=== PATIENT | female | born 1980 | race Caucasian/White ===

== ENCOUNTER 2023-03-31 22:14 | Emergency (ER) | payer MEDICAID, SELFPAY ==
[2023-03-31 22:15] VITALS: BP 145/92; PULSE 89; RESP 16; TEMP 36.8; O2SAT 99; BMI 30.2
--- NOTE | 2023-03-31 23:26 | EKG12_ITS ---
Test Reason : CP Blood Pressure : / mmHG Vent. Rate : 098 BPM Atrial Rate : 098 BPM P-R Int : 140 ms QRS Dur : 074 ms QT Int : 336 ms P-R-T Axes : 063 001 054 degrees QTc Int : 428 ms Normal sinus rhythm Normal ECG Confirmed by SAMUEL MILLER, LAMBERTO ([id number]), restaurant expeditor JEANETTE POWELL ([id number]) on 04/05/2023 8:07:14 AM Referred By: RANDALL Confirmed By:LAWANDA BAKER MD
--- NOTE | 2023-03-31 23:26 | RAD_ITS ---
EXAM: XR CHEST, 2 VIEWS CLINICAL INDICATION: dyspnea TECHNIQUE: Frontal and lateral views of the chest. COMPARISON: No relevant prior studies available. FINDINGS: LUNGS AND PLEURAL SPACES: No acute airspace disease. Multiple benign calcified granulomas. No pneumothorax. No effusion. HEART: Unremarkable. Cardiac silhouette not enlarged. MEDIASTINUM: Central airways and mediastinal contour are unremarkable. BONES/JOINTS: Unremarkable. SOFT TISSUES: Unremarkable. RAD/Chest PA and Lateral IMPRESSION: No acute findings in the chest. Electronically Signed: Sina Mora MD at 0:08 EDT ,
--- NOTE | 2023-03-31 23:26 | CT_ITS ---
EXAM: CT ABDOMEN AND PELVIS WITH INTRAVENOUS CONTRAST CLINICAL INDICATION: upper abd pain, RUQ pain TECHNIQUE: Helically acquired images were obtained of the abdomen and pelvis with intravenous contrast. This CT exam was performed using one or more of the following dose reduction techniques: automated exposure control, adjustment of the mA and/or kV according to patient size, and/or use of iterative reconstruction technique. CONTRAST: IV 100mL Isovue-300 RADIATION DOSE: CTDIvol = 15.24 mGy, DLP = 854.25 mGy-cm COMPARISON: No relevant prior studies available. FINDINGS: LOWER THORAX: Unremarkable. Lung bases are clear. No cardiomegaly. No significant pericardial effusion. ABDOMEN: LIVER: Unremarkable. Homogeneous. No focal mass. GALLBLADDER AND BILE DUCTS: Unremarkable. No calcified gallstones. No gallbladder distention or wall edema. No intra- or extrahepatic biliary ductal dilation. PANCREAS: Unremarkable. No focal cystic or solid mass. No inflammation around the pancreas. SPLEEN: Unremarkable. Normal size without focal cystic or solid mass. ADRENALS: Unremarkable. No nodules. KIDNEYS AND URETERS: Unremarkable. Normal renal size and position. No urinary stone or renal obstruction. STOMACH AND BOWEL: Unremarkable. No stomach or bowel distention. No focal inflammatory change. PELVIS: APPENDIX: History of appendectomy. BLADDER: Unremarkable. REPRODUCTIVE: Unremarkable as visualized. No mass. ABDOMEN and PELVIS: INTRAPERITONEAL SPACE: Unremarkable. No ascites or other fluid collection. No free air. BONES/JOINTS: Unremarkable. No suspicious lytic or blastic abnormality. SOFT TISSUES: Unremarkable. No discrete abdominal or pelvic wall hernia. VASCULATURE: Unremarkable. Abdominal aorta is non-dilated. LYMPH NODES: Unremarkable. No enlarged lymph nodes. CT/Abdomen/Pelvis W IV Cont ONLY IMPRESSION: No acute abnormalities identified in the abdomen/pelvis. Electronically Signed: Sina Mora MD at 0:33 EDT ,
[2023-03-31] MEDS: 0.9% Normal Saline 1,000 ML 1000 ML IV (23:37)
[2023-03-31 23:40] LABS: Absolute Lymphocyte Count 3.27 X10^3/uL (0.83-4.51); Absolute Neutrophil Count 9.9 X10^3/uL (2.0-7.7); Basophil# 0.08 X10^3/uL; Basophil% 0.5 % (0-1); Eosinophil# 0.19 X10^3/uL; Eosinophils% 1.3 % (0-5); Hematocrit 38.5 % (37-47); Hemoglobin 12.9 g/dL (12.0-15.0); Lymphocyte # 3.27 X10^3/ul (0.83-4.51); Mean Corp Hgb Conc 33.5 g/dL (32-36); Mean Corpuscular Hgb 31.5 pg (27.0-32.0); Mean Corpuscular Volume 93.9 fL (81-99); Monocyte# 1.36 X10^3/uL; Monocyte% 9.1 % (0-10); NRBC Flagged by Analyzer 0 % (0-5); Neutrophil # 9.93 X10^3/uL (2.7-7.7); Neutrophil % 66.7 % (47-70); Platelet Count 474 K/mm3 (150-450); RBC Distribution Width CV 14.1 % (11.6-14.6); RBC Distribution Width SD 48.8 fl (35.1-43.9); White Blood Count 14.9 K/mm3 (4.4-11.0)
--- NOTE | 2023-03-31 23:55 | EDS_ITS ---
HPI History of Present Illness Chief Complaint: General Illness Informant: patient Narrative Narrative: Patient is a 42-year-old female with history of GERD presenting for epigastric and right upper quadrant abdominal pain. Started around 2 PM today. Patient states she is also just been feeling blah and weak. She states her chest is heavy and she has had a cough for couple weeks. She denies any nausea or vomiting. She states her bowel movements have been normal but she has been a little more gassy today. Does have a history of prior appendectomy. She notes that 5 days ago she had a near syncopal episode where she was very out of it and everything felt far away. She notes she had taken THC edible at that time. She is not had any symptoms like that since she does not usually use Gummies. Patient states that she ate dinner tonight with no significant change but had not really eaten before that today. She does not normally eat until the evening time. PFSH PFS Medical History (Updated 04/01/23 @ 02:[address] Nina Kaye, DO) Depression Home Medications dextroamphetamine-amphetamine ER 30 mg 24hr capsule,extend release (Adderall XR) 30 mg PO DAILY 03/31/23 [History Last Taken Unknown] multivitamin (One Daily Multivitamin tablet) 1 tab PO DAILY 03/31/23 [History Last Taken Unknown] omeprazole 20 mg capsule,delayed release 20 mg PO DAILY 03/31/23 [History Last Taken Unknown] Allergy/AdvReac Type Severity Reaction Status Date / Time amoxicillin Allergy Mild Itching Verified 03/31/23 22:19 Family History (Updated 03/31/23 @ 22:37 by Pat Barton) Father Lung cancer Mother Depression Surgical History (Updated 03/31/23 @ 22:37 by Pat Barton) Hx of appendectomy Social History (Updated 03/31/23 @ 22:37 by Pat Barton) household members: significant other and children number of children: 3 Smoking Status: Current every day smoker tobacco type: cigarettes EXAM Physical Exam Const Vital Signs: 03/31/23 22:15 03/31/23 22:36 04/01/23 02:14 Temperature 98.3 F Temperature Source Temporal Pulse Rate 89 Respiratory Rate 16 18 Respiratory Effort Normal Blood Pressure 145/92 H Blood Pressure Mean 109 Pulse Ox 99 Oxygen Delivery Method Room Air 04/01/23 02:20 Temperature Temperature Source Pulse Rate 75 Respiratory Rate 18 Respiratory Effort Blood Pressure 125/74 H Blood Pressure Mean 91 Pulse Ox 98 Oxygen Delivery Method Room Air MDM MDM MDM Narrative Medical decision making narrative: Patient is evaluated for chest heaviness, generalized malaise and some vague right upper quadrant abdominal pain has been occurring all day today. The past few weeks she has had a cough has been intermittently productive. She had what sounds like a near syncopal episode 5 days ago but this does not seem to be correlated with taking a THC gummy. Patient does not have true chest pain but more of a heaviness. Has been a little gassy but does not think that is overly abnormal for her. No other GI symptoms. Symptoms seem to be worse with movement. Workup is remarkable for a leukocytosis of 14.9. This is of uncertain clinical significance and she does not have any fever and does not report fevers there is no obvious source of infection. Given her tenderness in her right upper quadrant I am concerned for possible cholecystitis however her symptoms are not really consistent with acute cholecystitis. Ultrasound is not available at this time so decided to initially perform a CT of the abdomen and pelvis. This is negative for any acute process. She still having more tenderness than I would expect in her right upper quadrant so decision was made to obtain a right upper quadrant ultrasound. This also is negative for acute cholecystitis. Lab work is otherwise normal with a normal lipase, normal liver panel and no renal insufficiency/electrolyte abnormality. 2 view chest x-ray interpreted by myself as well as radiology does not show any acute infiltrate indicative of pneumonia. Urinalysis is not consistent with infection. Patient is given Toradol in the ER with no significant improvement of her pain. Has been coughing so is possib le she could have pulled a muscle in her abdominal wall. Patient is counseled that the exact cause of her pain is not clear as well as the cause of her leukocytosis. She is agreeable to going home however and is given close return precautions. She has an appointment in 5 days to see new PCP [facility]. She is encouraged to keep it. In the meantime is counseled to alternate ibuprofen and Tylenol. I do not want to give antibiotics as I do not have a thing and particularly treating. She denies any recent steroid use that could cause leukocytosis. Patient and significant other verbalized agreement understand this plan. Patient discharged home in stable condition. Lab Data Attestation: I reviewed the patient's lab results. Labs: Laboratory Results - last 24 hr 03/31/23 04/01/23 22:42 00:28 WBC 14.9 H RBC 4.10 L Hgb 12.9 Hct 38.5 MCV 93.9 MCH 31.5 MCHC 33.5 RDW Std Deviation 48.8 H RDW Coeff of Michaelle 14.1 Plt Count 474 H MPV 10.0 Immature Gran % (Auto) 0.400 Neut % (Auto) 66.7 Lymph % (Auto) 22.0 [place] % (Auto) 9.1 Eos % (Auto) 1.3 Baso % (Auto) 0.5 Absolute Neuts (auto) 9.9 H Absolute Lymphs (auto) 3.27 Nucleated RBC % 0 Sodium 140 Potassium 3.3 L Chloride 106 Carbon Dioxide 27.0 Anion Gap 7 BUN 15 Creatinine 0.87 Estim Creat Clear Calc 69.68 Est GFR (MDRD) Af Amer 92 Est GFR (MDRD) Non-Af 76 BUN/Creatinine Ratio 17.2 Glucose 89 Calcium 8.7 Total Bilirubin 0.20 AST 9 L ALT 16 Alkaline Phosphatase 58 Troponin I High Sens 4 Total Protein 7.4 Albumin 3.2 Globulin 4.2 Albumin/Globulin Ratio 0.8 L Lipase 31 Urine Color Yellow Urine Clarity Clear Urine pH 6.5 Ur Specific [place] 1.015 Urine Protein 15 H Urine Glucose (UA) Normal Urine Ketones Negative Urine Occult Blood 25 H Urine Nitrite Negative Urine Bilirubin Negative Urine Urobilinogen Normal Ur Leukocyte Esterase 25 H Urine RBC 0 SEEN Urine WBC 0-5 SEEN Ur Squamous Epith Cells 0-5 SEEN Urine Bacteria 0 SEEN Urine Mucus 0 SEEN Radiography Chest X-Ray - ED: 2 View, Read by ED Physician, Read by Radiologist and Normal Diagnostic Testing: Clinical Impression(s) from Imaging Studies Abdomen/Pelvis CT 03/31/23 23:26 IMPRESSION: No acute abnormalities identified in the abdomen/pelvis. Electronically Signed: Sina Mora MD at 0:33 EDT , Chest X-Ray 03/31/23 23:26 IMPRESSION: No acute findings in the chest. Electronically Signed: Sina Mora MD at 0:08 EDT Reading Location ID and State: [facility] / [place] Tel , Service support , Gallbladder Ultrasound 04/01/23 01:04 IMPRESSION: 1. No acute findings in the right upper quadrant. 2. No gallstones. 3. Fatty infiltration of the liver. Electronically Signed: Sina Mora MD at 2:35 EDT Reading Location ID and State: [facility] / [place] Tel , Service support , Rhythm Strip Rhythm Strip: Sinus Rhythm Rate: 98 Ectopy: None EKG Initial EKG: Attestation: I personally reviewed and interpreted this EKG as follows: Interpretation: Sinus Rhythm Comments: Normal sinus rhythm rate of 98 bpm Normal axis Normal intervals Normal ST segments Differential Diagnosis Chest pain/SOB: pulmonary embolism Reason(s) PE less likely: Positive for PERC negative, not tachycardic and not hypoxic, ACS ACS: Positive for no evidence of ACS based on cardiac biomarkers, EKG without ischemia and history not suggestive of ischemia pain and pneumonia Reason(s) pneumonia less likely: Positive for no infiltrate on CXR and no noted fever Abdominal Pain: Appendicitis Reason(s) appendicitis less likely: Positive for clinical exam does not supportclinical exam does not support and other (Prior appendectomy), Cholecystitis Reason(s) Cholecystitis less likely: NL Gall Bladder on imagng studies, Pancreatitis Reason(s) Pancreatitis less likely: NL lab values and other (Normal pancreas on CT), Bowel obstruction Reason(s) bowel obstruction less likely: bowel sounds present on exam and no evidence of bowel obstruction on imaging studies and UTI Reason(s) UTI less likely: clinical exam does not support, no evidence of infection on urinalysis and no symptoms of acute infection Discharge Plan Triage Chief Complaint: General Illness ED Provider: Nina Kaye Dx/Rx/DC Orders Clinical Impression: Abdominal pain, RUQ, Chest heaviness, Leukocytosis Instructions: ED Chest Pain, Uncertain Cause, ED Pain, Acute, Uncertain Cause Prescriptions: No Action dextroamphetamine-amphetamine [Adderall XR] 30 mg capsule,extended release 24hr 30 mg PO DAILY multivitamin [One Daily Multivitamin] Tablet 1 tab PO DAILY omeprazole 20 mg capsule,delayed release(DR/EC) 20 mg PO DAILY Primary Care Provider: Care Physician,No Primary Referrals: [facility] [Non-Staff] - Keep Les appointment Care Physician,No Primary [Primary Care Provider] - Activity Restrictions/Additional Instructions: Workup today showed an elevated white blood cell count. The exact reason for this is not clear. There is no signs of pneumonia, acute cholecystitis (gallbladder attack or other acute abnormalities on your workup. Please drink lots of fluids, alternate ibuprofen and Tylenol as needed for discomfort. Do no t hesitate to return the emergency room if you have a progression of your symptoms including but not limited to worsening pain, vomiting or high fever. Disposition Disposition: Home, Self Care Discharge Date/Time: 04/01/23 03:02
[2023-04-01] LABS: ALB/GLOB Ratio 0.8 RATIO (0.9-2.4); AST(SGOT) 9 U/L (15-37); Alanine Aminotransfer ALT/SGPT 16 U/L (13-56); Albumin, Serum 3.2 g/dL (3.2-5.0); Alkaline Phosphatase 58 U/L (45-117); Anion Gap 7 (5-15); BUN 15 mg/dL (7-18); BUN/Creat Ratio 17.2 RATIO (10-20); Calcium,Total 8.7 mg/dL (8.5-10.1); Chloride 106 mmol/L (98-107); Creatinine, Serum 0.87 mg/dL (0.55-1.02); EST Glomerular Filtration Rate 76 mL/min (>60); Est Glom Filt Rate - Afr Amer 92 mL/min (>60); Estimated Creatinine Clearance 69.68 ml/min; Globulin 4.2 g/dL (2.2-4.2); Glucose 89 mg/dL (74-106); Lipase 31 U/L (13-75); Potassium 3.3 mmol/L (3.5-5.1); Protein, Total 7.4 g/dL (6.4-8.2); Sodium Level 140 mmol/L (136-145); Troponin-I HS 4 pg/mL (3.0-54.0)
[2023-04-01 00:33] LABS: Bacteria 0 SEEN /hpf (None Seen); Mucous, Urine 0 SEEN /hpf (<or=2+); Red Blood Cells-Urine 0 SEEN /hpf (0-5)
[2023-04-01 00:34] LABS: Color, Urine Yellow (Yellow); Glucose, Dipstick Normal (Normal); Ketone-Dipstick Negative (Negative); Leukocyte Esterase-Dipstick 25 /ul (Negative); Nitrite-Dipstick Negative (Negative); Occult Blood-Urine 25 /ul (Negative); Protein-Dipstick 15 mg/dl (Negative); Specific Gravity, Urine 1.015 (1.002-1.030); Urine Bilirubin Dipstick Negative (Negative); Urine Clarity Clear (Clear); Urine Urobilinogen Normal (Normal); Urine pH 6.5 (5.0 - 8.0)
[2023-04-01 00:44] LABS: Squamous Epithelial Cells - UA 0-5 SEEN /hpf (5-10); White Blood Cells 0-5 SEEN /hpf (0-5)
--- NOTE | 2023-04-01 01:04 | US_ITS ---
EXAM: US ABDOMEN LIMITED, RIGHT UPPER QUADRANT CLINICAL INDICATION: RUQ pain, leukocytosis TECHNIQUE: Real-time ultrasound of the right upper quadrant with image documentation. COMPARISON: CT abdomen pelvis 03/31/2023. FINDINGS: LIVER: Mild increased echogenicity of the liver parenchyma. No intrahepatic biliary ductal dilation. GALLBLADDER: The gallbladder is partly contracted. No shadowing gallstone. No pericholecystic fluid. Negative sonographic Villarreal''s sign. COMMON BILE DUCT: 5.2 mm. The proximal common bile duct is within normal limits for the patient''s age. PANCREAS: Unremarkable as visualized. No focal abnormality is demonstrated in the pancreas. No pancreatic ductal dilatation. RIGHT KIDNEY: Unremarkable. There is no hydronephrosis. No shadowing calculus. No focal lesion or perinephric collection is demonstrated. US/Gallbladder IMPRESSION: 1. No acute findings in the right upper quadrant. 2. No gallstones. 3. Fatty infiltration of the liver. Electronically Signed: Sina Mora MD at 2:35 EDT ,
[2023-04-01] MEDS: Ketorolac 15 MG/ML Vial IV (01:43)
[2023-04-01 02:14] VITALS: RESP 18
[2023-04-01 02:20] VITALS: BP 125/74; PULSE 75; RESP 18; O2SAT 98
[2023-04-01 03:01] VITALS: BP 122/68; PULSE 71; RESP 16
== END 2023-04-01 03:02 | disposition home or self-care (01) ==
PROVIDERS: Emergency Provider Emergency Medicine; Visit Provider Emergency Medicine
DX: R10.11 Right upper quadrant pain (principal); R07.89 Other chest pain; R10.13 Epigastric pain; F17.210 Nicotine dependence, cigarettes, uncomplicated; D72.829 Elevated white blood cell count, unspecified; K21.9 Gastro-esophageal reflux disease without esophagitis; Z90.49 Acquired absence of other specified parts of digestive tract
CPT/HCPCS: 71046; 74177; 76705; 80053; 81001; 83690; 84484; 85025; 93005; 96361; 96374; 99283; J7030; Q9967; A4216

== ENCOUNTER → 2023-05-03 | Outpatient (CLI) | payer MEDICAID, SELFPAY ==
[2023-05-03 15:27] LABS: Free T3 2.8 pg/mL (2.18-3.98); T4 Free Direct 0.99 ng/dL (0.76-1.46); Thyroid Stim Hormone (TSH) 1.36 uIU/mL (0.358-3.74)
[2023-05-03 16:43] LABS: Amphetamine Urine VISTA POSITIVE (<1000 ng/mL); Barbiturate Urine VISTA NEGATIVE (< 200 ng/mL); Benzodiazepine Urine VISTA NEGATIVE (< 200 ng/mL); Cocaine Urine VISTA NEGATIVE (< 300 ng/mL); Ecstacy Urine VISTA NEGATIVE (< 500 ng/mL); Methadone Urine VISTA NEGATIVE (< 300 ng/mL); PCP Urine VISTA NEGATIVE (< 25 ng/mL); THC Urine VISTA NEGATIVE (< 50 ng/mL); Vista UDS pH Range 6
== END | disposition home or self-care (01) ==
LOC: LAB 14:02
PROVIDERS: Referring Provider Nurse Practitioner Psychiatric/Mental Health; Visit Provider Nurse Practitioner Psychiatric/Mental Health
DX: F19.10 Other psychoactive substance abuse, uncomplicated (principal); R53.83 Other fatigue; Z79.899 Other long term (current) drug therapy
CPT/HCPCS: 36415; 80307; 84439; 84443; 84481

== ENCOUNTER 2023-06-28 07:16 | Day surgery (SDC) | payer MEDICAID, SELFPAY ==
--- NOTE | 2023-06-28 | IMM_PTH ---
PATIENT: RANJIT KHAN LOC: EN U#:[id number] AGE/SX: 43/F ROOM: RE06/28/[address]: Dr. Maribel Miller MD : 1980 BED: DIS: 06/28/2023 SPEC #: [id number] RECD: 06/28/23 11:52 STATUS: RIGOBERTO [place] #: [id number] DMITRIY: 06/28/23 00:[address]: Maribel Miller DEPT: IMMUNOHISTOCHEMISTRY RECD BY: Wyatt Olvera ENTERED: 06/28/23 11:52 SP TYPE: IMMUNO PRIMO DR: [facility] Tissues: A - Gastric mucous membrane b - Gastric mucous membrane Procedures: H Pylori (initial) KI-67 (add) P53 (add) PHYSICIAN & INSTITUTION [place] [id number] SPECIMEN INFORMATION: Tissue Source: Antrum Clinical Info: GERD, GE junction Specimen Number: [id number] A and B CPT code: 97772, 15578 x2 METHODOLOGY: Deparaffinized sections of prefer/formalin-fixed tissue or PAP/DQ stained slides are incubated with monoclonal/polyclonal antibodies/oligonucleotide probes. Localization is made via biotin free immunoperoxidase method. Appropriate controls are performed and reacted as expected. Results on target cell population are indicated in the following table: RESULTS: ANTIBODY / CLONE RESULT BLOCK A H Pylori (polyclonal) negative BLOCK B P53 (DO-7) negative (null pattern) Ki-67 (30-9) positive, low These tests were developed and their performance characteristics determined by [facility]. They may not have been cleared or approved by the U.S. Food and Drug Administration. The FDA has determined that such clearance or approval is not necessary. The above immunohistochemical/dualISH markers are ordered and reviewed by the Pathologist. INTERPRETATION: A. Antrum, biopsy: Negative for Helicobacter pylori organisms. B. GE junction, biopsy: Negative for dysplasia. SJ:gerber 06/30/2023
[2023-06-28 07:40] VITALS: BP 132/78; PULSE 93; RESP 16; TEMP 37.1; O2SAT 99; BMI 30.4
[2023-06-28 07:42] LABS: Internal QC Validated? YES +Cl - CLEAR BKGD; Pregnancy, Urine Negative Negative; Record Kit Lot#,Urine Preg HCG0000667200
[2023-06-28] MEDS: Lactated Ringers 1,000 ML 15 ML IV (07:42)
--- NOTE | 2023-06-28 08:01 | HP.PCM_ITS ---
History and Physical Date of Admission: 06/28/23 Date of Service: 06/03/23 MR#: [id number] Acct: [id number] Name: RANJIT KHAN Rep #: [id number] : 1980 Provider: Dr. Maribel Miller MD Age/Sex: 42/F Location: [facility] Status: Signed Intake Vital Signs 03/31/2322:15 06/03/2313:08 Height 5 ft 3 in 5 ft 3 in Weight: 172 lb BMI 30.4 BP 125/87 H Blood Pressure Location Rt brachial Position Sitting Respiration 17 Pulse 88 Pulse Source Monitor Pulse Oximetry (%) 99 Oxygen Delivery Method room air Intake Visit Reasons: Gerd Chief Complaint: gerd Is patient in pain?: No Allergies amoxicillin Allergy (Mild, Verified 06/03/23 13:12) Itching Medications dextroamphetamine-amphetamine ER 30 mg 24hr capsule,extend release (Adderall XR) 30 mg PO DAILY 03/31/23 [History Confirmed 06/03/23] multivitamin (One Daily Multivitamin tablet) 1 tab PO DAILY 03/31/23 [History Confirmed 06/03/23] pantoprazole 40 mg tablet,delayed release 40 mg PO DAILY 06/03/23 [History Confirmed 06/03/23] sucralfate 1 gram tablet 1 g PO QACHS #56 tabs 06/03/23 [Rx Confirmed 06/03/23] venlafaxine 37.5 mg capsule,extended release 24 hr 37.5 mg PO DAILY 06/03/23 [History Confirmed 06/03/23] PFSH Medical History (Updated 06/03/23 @ 13:07 by Soledad Pereyra) Depression Surgical History Hx of appendectomy Family History (Updated 06/03/23 @ 13:08 by Soledad Pereyra) Father Lung cancerMother DepressionBrother Thyroid disorder Social History (Updated 06/03/23 @ 13:08 by Soledad Pereyra) household members: significant other and children number of children: 3 Smoking Status: Current every day smoker tobacco type: cigarettes alcohol intake: never substance use type: does not use HPI HPI HPI: 2-year-old female presents due to reflux. Patient states she has had issues since she was a while ago. Patient was initially on some likely PPI and then lost insurance was on Pepcid and more recently patient was able to get her insurance back she was previously on Pepcid at about every other day which controlled her symptoms fairly well. Patient is got her insurance back but 2 months ago did see her PCP and got Protonix 40 mg p.o. daily. Patient's never had previous EGD. Patient states she is will still have symptoms on the medication and occasionally will wake up middle night with burning up her esophagus. Patient still does drink coffee in the morning. Patient only eats 1 meal a day typically before bed as she usually does not have an appetite earlier in the day and patient states its been like that for years. Currently patient denies any abdominal pain or nausea. ROS General General: No weight change, appetite, fatigue, colon cancer, breast cancer or weakness HEENT HEENT: No difficulty swallowing, eye injury, eye surgery, swollen glands or hoarseness Endo Endocrine: No thyroid disease, diabetes mellitus, thyroid cancer, Hair loss, heat intolerance or cold intolerance Skin Skin: No rash or changing moles Musc Musculoskeletal: Yes back problems; No arthritis, rheumatoid arthritis, gout or joint pain Cardio Cardiovascular: No murmur, pacemaker, heart disease, atrial fibrillation, high blood pressure, heart attack, heart stent, palpitations, shortness of breat with exertion or chest pain Psych Psychiatric: Yes depression and anxiety; No hearing voices Resp Respiratory: No shortness of breath, No sleep apnea, No cough, No COPD, No asthma, No emphysema and No wheezing Gastro Gastrointestinal: Yes abdominal pain, No nausea or vomiting, No diarrhea, Yes constipation, No blood in stool, Yes acid reflux, Yes hemorrhoids, No ulcers, Yes gallbladder problem and No black,tarry stools David Hematologic: No blood thinners, No blood disorders, No bleeding, No anemia and No blood clots Neuro Neurologic: No system reviewed and no additional complaints, except as documented, No as per HPI, No abnormal gait, No abnormal hearing, No abnormal movements, No abnormal speech, No behavioral changes, No burning sensations, No confusion, No convulsions, No disequilibrium, No dizziness, No localized weakness, No frequent falls, No headache(s), No lack of coordination, No loss of vision, No memory loss, No numbness, No other visual disturbances, No radicular pain, No restless legs, No sensory deficit, No syncope, No tingling, No tremor(s), No weakness and No other Exam Const General: cooperative, healthy appearing, comfortable and no acute distress HENPR Head: normocephalic and atraumatic Neck Neck: supple Resp Effort & Inspection: normal respiratory effort Cardio Rate: regular rate GI Inspection: non-distended Palpation: soft and nontender Skin General: no rashes or lesions noted Neuro General: CN's II-XI intact bilaterally Extrem General: normal to inspection Psych Mental Status: mental status grossly normal Attitude: cooperative Assessment and Plan Assessment and Plan (1) GERD (gastroesophageal reflux disease): Status: Acute Medications: New sucralfate Take an hour before meals and at bedtime 1 g PO QACHS 56 tabs 0RF Plan Also prescribe patient Carafate x2 weeks see if that helps calm down her stomach. Rectal recommend patient staying on the Protonix as well. Discussed with patient if she would lose her insurance again in the future?using GoodRx is a cheaper way to get the prescription or [id number]-[id number] omeprazole as available. Discussed with patient importance of trying to avoid coffee/caffeine/spicy foods or acidic foods. I have discussed the above with the patient. I have offered the patient EGD for evaluation. I have explained the risks/benefits of the procedure and described the procedure. I have discussed the risks with the patient, including but not limited to: infection, bleeding, perforation of the GI tract requiring emergency surgery, inability to complete the procedure, injury to any internal organs, complications of anesthesia, etc. - the patient understands and agrees to proceed. I have answered all the patient's questions to the patient's satisfaction and the patient has no further questions. Maribel Miller M.D. Pager: [phone] [facility] [address] [place] [address], [address] [place] [address] Office: [phone] Coding Level of Care Code Off vis,new,level 3 Diagnoses GERD (gastroesophageal reflux disease) K21.9 06/03/23 1428 <Electronically signed by Maribel Miller MD> Date Maribel Miller MD
[2023-06-28 08:25] VITALS: BP 125/76; BP 132/78; PULSE 94; RESP 18; TEMP 37; O2SAT 97
--- NOTE | 2023-06-28 08:25 | OP.CCLET_ITS ---
06/28/2023 [facility] Re : Upper GI endoscopy procedure for Celestino Montiel [facility] This procedure was performed on Wednesday, June 28, 2023. My impressions and recommendations are as follows: Impressions : - Z-line irregular. Biopsied. - Erythematous mucosa in the antrum. Biopsied. - Normal examined duodenum. Recommendations : - Await pathology results. - Discharge patient to home. - Resume previous diet. - Continue present medications. My findings are described in the full procedure note, which is enclosed. If I can be of further assistance, please feel free to contact me at Doctor phone number(s): , Work: . Sincerely, MD Maribel Heath MD 06/28/2023 8:25:01 AM This report has been signed electronically.
--- NOTE | 2023-06-28 08:25 | OP.EGD_ITS ---
Patient Name: Celestino Palacios Procedure Date: 06/28/2023 8:02 AM Date of : 1980 Age: 43 Procedure: Upper GI endoscopy Indications: Heartburn Providers: Maribel Miller MD Referring MD: Alla Carrasco [facility] Medicines: Monitored Anesthesia Care Patient Profile: This is a 43 year old female. Complications: No immediate complications. Procedure: Pre-Anesthesia Assessment: - Prior to the procedure, a History and Physical was performed, and patient medications and allergies were reviewed. The patient's tolerance of previous anesthesia was also reviewed. The risks and benefits of the procedure and the sedation options and risks were discussed with the patient. All questions were answered, and informed consent was obtained. Prior Anticoagulants: The patient has taken no anticoagulant or antiplatelet agents. ASA Grade Assessment: Per anesthesia. After reviewing the risks and benefits, the patient was deemed in satisfactory condition to undergo the procedure. After obtaining informed consent, the endoscope was passed under direct vision. Throughout the procedure, the patient's blood pressure, pulse, and oxygen saturations were monitored continuously. The Endoscope was introduced through the mouth, and advanced to the second part of duodenum. The upper GI endoscopy was accomplished without difficulty. The patient tolerated the procedure well. Scope In: 8:14:40 AM Scope Out: 8:20:01 AM Total Procedure Duration Time 0 hours 5 minutes 21 seconds Findings: The Z-line was irregular. Biopsies were taken with a cold forceps for histology. Mildly erythematous mucosa without bleeding was found in the gastric antrum. Biopsies were taken with a cold forceps for histology. Biopsies were taken with a cold forceps for Helicobacter pylori cultures. The cardia and gastric fundus were normal on retroflexion. The examined duodenum was normal. Impression: - Z-line irregular. Biopsied. - Erythematous mucosa in the antrum. Biopsied. - Normal examined duodenum. Recommendation: - Await pathology results. - Discharge patient to home. - Resume previous diet. - Continue present medications. Procedure Code(s): --- Professional --- 60031, Esophagogastroduodenoscopy, flexible, transoral; with biopsy, single or multiple Diagnosis Code(s): --- Professional --- K22.89, Other specified disease of esophagus K31.89, Other diseases of stomach and duodenum R12, Heartburn CPT copyright 2021 [employer]. All rights reserved. The codes documented in this report are preliminary and upon tarring machine operator review may be revised to meet current compliance requirements. MD Maribel Heath MD 06/28/2023 8:25:01 AM This report has been signed electronically. Number of Addenda: 0 Note Initiated On: 06/28/2023 8:02 AM
[2023-06-28 08:30] VITALS: BP 122/78; BP 132/78; PULSE 94; RESP 16; O2SAT 98
--- NOTE | 2023-06-28 08:30 | EGD_PTH ---
PATIENT: RANJIT KHAN LOC: EN U#:[id number] AGE/SX: 43/F ROOM: RE06/28/[address]: Dr. Maribel Miller MD : 1980 BED: DIS: 06/28/2023 SPEC #: [id number] RECD: 06/28/23 10:12 STATUS: RIGOBERTO BEATRIS #: [id number] DMITRIY: 06/28/23 08:[address]: Maribel Miller DEPT: SURGICAL PATHOLOGY RECD BY: Michelle Hamlin ENTERED: 06/28/23 11:03 SP TYPE: EGD BIOPSY OT DR: [facility] Tissues: A - Gastric mucous membrane B - Esophageal mucous membrane Procedures: Surgery Specimen Level IV HEADER OPERATION: EGD with biopsy PRE-OP DIAGNOSIS: GERD TISSUE SUBMITTED: A. Antrum, B. GE junction MICROSCOPIC DIAGNOSIS A. Antrum, biopsy: Mild gastritis. See microscopic description and comment. B. GE junction, biopsy: Fragments of gastroesophageal mucosa with intestinal metaplasia (goblet cell metaplasia), consistent with Ritter's esophagus. Chronic inflammation. Negative for dysplasia. See comment. SJ: 06/29/2023 COMMENT A. The results of immunohistochemistry for Helicobacter pylori will be reported separately ([id number]). B. Alcian blue/PAS stain with matched control is used in the evaluation of the specimen. Immunohistochemistry ([id number]) for P53 and Ki-67 will be performed and results will be reported separately. MICROSCOPIC DESCRIPTION Slides are reviewed. The specimen shows fragments of gastric mucosa with chronic inflammatory cell infiltrates in the lamina propria consisting of lymphocytes and plasma cells, consistent with mild chronic gastritis. GROSS DESCRIPTION A. Received is one container labeled with the patient name and designated antrum. The specimen consists of one irregular fragment of light mcnamara soft tissue that measures 0.6 x 0.3 x 0.1 cm. The specimen is totally submitted in one cassette. B. Received is one container labeled with the patient name and designated GE junction. The specimen consists of two irregular fragments of light mcnamara soft tissue that in aggregate measure 0.6 x 0.3 x 0.1 cm. The specimen is totally submitted in one cassette. / ERICA:gerber 06/28/23 TC:3 CPT: 95494 x2, 86429
[2023-06-28 08:35] VITALS: BP 126/88; BP 132/78; PULSE 97; RESP 16; O2SAT 97
[2023-06-28 08:40] VITALS: BP 124/76; BP 132/78; PULSE 81; RESP 16; TEMP 37.4; O2SAT 97
[2023-06-28 08:56] VITALS: BP 132/78
== END 2023-06-28 09:03 | disposition home or self-care (01) ==
LOC: EN 07:16 → AC 07:18
PROVIDERS: Anesthesiology; Visit Provider Surgery
PROC: 0DJ08ZZ Inspection of Upper Intestinal Tract, Via Natural or Artificial Opening Endoscopic (ICD-10-PCS; CPT 43235; principal; 2023-06-28 08:25)
DX: K29.70 Gastritis, unspecified, without bleeding (principal); K21.00 Gastro-esophageal reflux disease with esophagitis, without bleeding; F17.210 Nicotine dependence, cigarettes, uncomplicated; F32.A Depression, unspecified; F41.9 Anxiety disorder, unspecified; K22.70 Barrett's esophagus without dysplasia; Z79.899 Other long term (current) drug therapy; Z90.49 Acquired absence of other specified parts of digestive tract
CPT/HCPCS: 43239; 81025; 88305; 88341; 88342; J7120; J2405

== ENCOUNTER 2025-05-30 22:05 | Emergency (ER) | payer SELFPAY ==
[2025-05-30 22:07] VITALS: BP 169/92; PULSE 98; RESP 18; TEMP 36.1; O2SAT 100
--- NOTE | 2025-05-30 22:10 | RAD_ITS ---
PROCEDURE: RIGHT SHOULDER MIN 2 VIEWS 05/30/2025 REASON FOR EXAM: PAIN TECHNIQUE: Procedure Code: RADSH Modality: DX Procedure: SHOULDER MIN 2 VIEWS Laterality: Right COMPARISON: None. FINDINGS: No acute fracture or dislocation. Alignment is anatomic. Preserved joint spaces. Large amount of amorphous calcification overlying the superolateral right humeral head reflecting rotator cuff calcific tendinosis. Innumerable scattered subcentimeter pulmonary calcified granulomas noted. RAD/Shoulder min 2 Views IMPRESSION: No significant osseous abnormality. Prominent rotator cuff calcific tendinosis /tendinitis. Reading Location: [id number]
--- NOTE | 2025-05-30 22:40 | EDS_ITS ---
HPI History of Present Illness Chief Complaint: Upper Extremity Injury Narrative Narrative: 44-year-old female who denies significant past medical history, [id number], presents with pain in her right shoulder that she has had for at least a week. She relates history that she did not fall on it but she was helping a friend pull a kayak out of the water. This was approximately a week ago. The following day she developed right shoulder pain. It improved after about 3 days, but started again 2 days ago. She now has increasing pain that is worse with movement in her right shoulder. It is diffuse. She denies any chest pain, no abdominal pain. She has been taking ibuprofen without relief of her symptoms. [facility] Medical History Wears glasses Restless legs Gastric reflux Shortness of breath on exertion Smoker Depression Home Medications ?Medication ?Instructions ?Recorded ?Last Taken ?Type dextroamphetamine-amphetamine ER 30 mg PO DAILY 06/28/23 History 30 mg 24hr capsule,extend release (Adderall XR) multivitamin (One Daily 1 tab PO DAILY 03/31/23 Unkn own History Multivitamin tablet) pantoprazole 40 mg tablet,delayed 40 mg PO DAILY 06/03 Unknown History release sucralfate 1 gram tablet 1 g PO QACHS #56 tabs Unknown Rx venlafaxine 37.5 mg 75 mg PO DAILY 06/03/2302/12 History capsule,extended release 24 hr hydrocodone-acetaminophen 5-325mg 1 tab PO Q6H PRN thea n 3 days #10 05/30/25 Unknown Rx 5mg-325mg tabs Allergy/AdvReac Type Severity Reaction Status Date / Time amoxicillin Allergy Mild Itching Verified 05/30/25 22:06 Family History Father Lung cancer Mother Depression Brother Thyroid disorder Surgical History Hx of appendectomy Social History household members: significant other and children number of children: 3 Smoking Status: Current every day smoker tobacco type: cigarettes alcohol intake: never substance use type: does not use ROS ROS ED ROS Narrative Review of systems positive for right shoulder pain worse with movement. Ibuprofen without relief. No fevers or chills, no abdominal pain. EXAM Physical Exam Narrative Exam Narrative: Afebrile. Vital signs noted. Nontoxic-appearing. Cardiovascular examination feels regular rate and rhythm. Lungs are clear to auscultation bilaterally. Abdomen is soft and nontender without guarding or rebound. No right upper quadrant abdominal pain. Inspection of the shoulder reveals limited range of motion secondary to pain. She has pain with external rotation of the right forearm, and also pain with abduction. There is diffuse tenderness to palpation but no clinical dislocation. She has a palpable radial pulse distally. No crepitance of skin, no collarbone tenderness/clavicular tenderness. Const Vital Signs: 05/30/25 22:07 Temperature 96.9 F L Temperature Source Temporal Pulse Rate 98 Respiratory Rate 18 Blood Pressure 169/92 H Blood Pressure Mean 117 Pulse Ox 100 Oxygen Delivery Method Room Air MDM MDM MDM Narrative Medical decision making narrative: The differential diagnosis includes but not limited to fracture versus dislocation of proximal humerus versus rotator cuff tear versus bicipital tendinitis versus other ligamentous strain. Patient has been taking 800 mg of ibuprofen and at times even more. She was given a [place] tablet here and will be given a sling for comfort. I am highly suspecting rotator cuff tear. I do not feel that this is referred pain from [facility] as it is reproducible. X-rays were obtained of the right shoulder in 3 views and interpreted by myself independently. While there is no evidence of fracture or dislocation, she does have calcific tendinitis. I reviewed the radiology report which confirms my independent interpretation. Regarding a sling, she states that she already has 1 at home so I canceled the order for 1 here. She also declined the [place] tablet here as she was afraid that it would upset her stomach. She was told not to use so much ibuprofen. I did write her prescription for 10 tablets of [place] to use as needed. I referred her to orthopedics on-call. She will follow-up with her primary care provider and/or orthopedics for her calcific tendinitis. Return instructions to the emergency department were reviewed. Disposition is discharged home in stable condition. History & Record Review Discussion w/independent historian: Patient and Significant other Radiography X-Ray: Read by ED Physician, Read by Radiologist, No Fracture and - (Calcific tendinitis) Discharge Plan Triage Chief Complaint: Upper Extremity Injury ED Provider: Thomas Mancera Dx/Rx/DC Orders Clinical Impression: Pain in right shoulder, Calcific tendinitis Instructions: ED Shoulder Sprain, ED Shoulder Pain, Uncertain Cause Prescriptions: New hydrocodone-acetaminophen 5-325 mg tablet 1 tab PO Q6H PRN (Reason: pain) 3 Days Qty: 10 0RF No Action pantoprazole 40 mg tablet,delayed release (DR/EC) 40 mg PO DAILY venlafaxine 37.5 mg capsule,extended release 24hr 75 mg PO DAILY sucralfate 1 gram tablet 1 g PO QACHS Qty: 56 0RF Rx Instructions: Take an hour before meals and at bedtime dextroamphetamine-amphetamine [Adderall XR] 30 mg capsule,extended release 24hr 30 mg PO DAILY multivitamin [One Daily Multivitamin] Tablet 1 tab PO DAILY Primary Care Provider: [facility],Alla Carracso Referrals: London Stauffer MD [Med Staff - Active Staff, Orthopedics] - As soon as possible [facility],Alla Carrasco [Primary Care Provider, Medical] - 1 Week if not improving Activity Restrictions/Additional Instructions: Use your sling for comfort, but exercise your right shoulder a few times a day. Follow-up with orthopedics for further management. Return with fever, new or worsening symptoms. Be aware of nausea, vomiting, drowsiness, constipation, and addiction with the use of opiate pain medication. Print Language: Swedish Disposition Disposition: Home, Self Care
[2025-05-30 23:14] VITALS: BP 139/86; PULSE 73; RESP 16; TEMP 36.4; O2SAT 98
== END 2025-05-30 23:20 | disposition home or self-care (01) ==
PROVIDERS: Emergency Provider Emergency Medicine; Visit Provider Emergency Medicine
DX: M25.511 Pain in right shoulder (principal); F17.210 Nicotine dependence, cigarettes, uncomplicated; M75.31 Calcific tendinitis of right shoulder; K21.9 Gastro-esophageal reflux disease without esophagitis; X50.0XXA Overexertion from strenuous movement or load, initial encounter
CPT/HCPCS: 73030; 99283